=== PATIENT | male | born 1960 | race Caucasian/White ===

== ENCOUNTER 2016-05-13 13:44 | Observation (INO) | payer OTHER ==
[~2016-05-13] VITALS: Ht 188 cm; Wt 101.1 kg
--- NOTE | 2016-05-13 15:00 | DIAGNOSTIC IMAGING REPORT ---
PROCEDURE: XR CHEST 1 VIEW INDICATION: CHEST PAIN TECHNIQUE: Portable AP view 02:00 p.m. COMPARISON: None. FINDINGS: Lungs are clear. Heart and mediastinum are normal. Thorax is normal. IMPRESSION: 1. Negative chest.
--- NOTE | 2016-05-13 15:51 | ED NURSING NOTES ---
Clinical Report - Nurses [facility] [address] [place] [address] 05/13/2016 13:45 Patient: MACY HIGGINS TRIAGE Acuity: LEVEL 2. Chief Complaint: CHEST PAIN. Alert. --14:11 Genny Cantu R.N. 13:45 05/13/16. BP: 176/77. HR: 91. RR: 24. O2 saturation: 96% on room air. Temp: 97.7 F (oral). --14:11 Genny Cantu R.N. Weight: 103.4 kg measured. Height/Length: 74 inches Per Patient. BMI: 29.3. --13:57 Genny Cantu R.N. Medications MetFORMIN HCl Oral 1500 mg, daily. --14:08 Genny Cantu R.N. Rosuvastatin Calcium Oral 20 mg, daily. --14:08 Genny Cantu R.N. Losartan Potassium Oral 25 mg, at bedtime. --14:08 Genny Cantu R.N. Metoprolol Succinate ER Oral 50 mg, daily. --14:09 Genny Cantu R.N. Fenofibrate Micronized Oral 160 mg. --14:09 Genny Cantu R.N. Aspirin Oral (Tablet 81 mg) 1 tablet, daily. --14:09 Genny Cantu R.N. Avaodia 4 mg , 2x a day. --14:10 Genny Cantu R.N. Invokana Oral (Tablet 100 mg), daily. --14:11 Genny Cantu R.N. Medication/allergy information source: the patient. --14:11 Genny Cantu R.N. Allergies No Known Drug Allergy. --13:59 Genny Cantu R.N. History Arrived by EMS. Historian: EMS and patient. Unaccompanied. This started today. ( EMS reports pt developed chest pain approx 1.5 hours ago and drove self to walk-in clinic. EMS picked up pt there.). 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 SOCIAL HX: Smoker- current status unknown (chews tobacco). Regular alcohol use. Last drink was just prior to arrival. No drug use. FALL RISK ASSESSMENT: Fall risk assessment completed. No fall risk identified. NUTRITIONAL RISK ASSESSMENT: The nutritional risk assessment revealed no deficiencies. FUNCTIONAL ASSESSMENT: Functional assessment: no impairments noted. LEARNING NEEDS ASSESSMENT: The learning needs assessment revealed no barriers. SKIN INTEGRITY ASSESSMENT: Skin integrity risk assessment completed. No skin integrity risk identified. --14:11 Genny Cantu R.N. PROBLEMS: Diabetes Mellitus Type 2. Myocardial Infarction. PTSD. --14:02 Genny Cantu R.N. Hyperlipidemia. --17:18 Genny Cantu R.N. ADDITIONAL SURGERIES: Cardiac Catheterization. Knee Surgery. --14:02 Genny Cantu R.N. Assessment GENERAL / NEURO / PSYCH: Alert. Oriented X 4. Appears in no acute distress. RESPIRATORY: Respirations not labored. CVS: Capillary refill less than 2 seconds. GI / : Abdomen soft and nontender. SKIN: Mucous membranes are pink. Skin is warm and dry. --14:11 Genny Cantu R.N. Interventions ID band on patient. To treatment room. --14:11 Genny Cantu R.N. 13:45 05/13/2016 Site #1 started prior to arrival by EMS via IV in the right forearm with an 20g angiocath. --13:46 Genny Cantu R.N. PHYSICAL ASSESSMENT 14:13 05/13/16. GENERAL / NEURO / PSYCH: Alert. Appears in no acute distress. Appears in pain and anxious. He appears agitated and is hostile. The patient is disoriented. HEENT: Mucous membranes are pink. RESPIRATORY: Respirations not labored. CVS: Normal sinus rhythm noted. Pulses within normal limits. GI / : Abdomen soft and nontender. EXTREMITIES: No lower extremity edema. SKIN: Skin is warm and dry. Normal skin turgor. Skin is non-tender. --14:13 Genny Cantu R.N. NURSING PROGRESS NOTES 13:57 05/13/2016 Site #2 started via IV in the left antecubital space with an 18g angiocath, with aseptic technique and good blood return; one attempt. Blood drawn: rainbow set. Labeled in the presence of the patient and sent to the lab. Saline lock flushed with 10 mL saline. --14:02 Zaire Ocampo R.N. Oxygen administered by nasal cannula at 2 liters. Patient gowned. Head of bed elevated. Reassurance given. Patient identifiers checked. Call light placed in reach. Bed placed in lowest position. Brakes of bed on. ( ED MD at bedside upon arrival.). --14:12 Genny Cantu R.N. 13:42 05/13/2016 Nitroglycerin SL 0.4 mg given. Allergies verified and confirmed 5 rights. --14:14 Genny Cantu R.N. 13:47 05/13/16. ( attempted to start 2nd line on pt at 1347 and draw rainbow. Pt became agitated and tense. He balled up his fists and began shaking them at staff. Pt highly agitated and asking, "Why am I here?! Why are you doing this to me?" MD notified. Care delayed due to patient's agitation. IV placed at a later time after calming patient down.). --14:30 Zaire Ocampo R.N. 13:48 05/13/2016 Morphine IVP 4 mg given over 1 minute(s) via site #1. Allergies verified, confirmed 5 rights and sedative warning given to the patient. IV patency established. IV site checked: no pain, redness, or swelling. IV flushed thoroughly pre- and post-medication administration. IVP given by RN. --14:14 Genny Cantu R.N. 14:08 05/13/2016 Aspirin PO 325 mg given. Allergies verified and confirmed 5 rights. --14:13 Genny Cantu R.N. 14:47 05/13/2016 Started bag #1 500 mL IV Fluids IV NS (Saline); at 125 mL/hr over 4 hour(s) via site #1 via IV pump. Allergies verified and confirmed 5 rights. IV patency established. IV site checked: no pain, redness, or swelling. IV flushed thoroughly pre- and post-medication administration. Completed per protocol. --14:47 Rivera Barton R.N. EKG time: (13:56). EKG was performed by a tech and shown to the ED physician. --14:53 Davida Baker 15:03 05/13/16. BP: 143/66. HR: 75. RR: 16. O2 saturation: 95% on room air. --15:06 Zaire Ocampo R.N. ( at bedside). --15:06 Zaire Ocampo R.N. ( Again requested patient to provide urine sample). --16:25 Zaire Ocampo R.N. 16:45 05/13/16. BP: 134/76. HR: 64. RR: 18. O2 saturation: 99%. Pain level now: 06/24. --16:48 Genny Cantu R.N. 18:00 05/13/2016 IV Fluids IV NS Discontinued: bag #1 infused upon admission. Total amount infused: 1000 mL. IV patency established. IV site checked: no pain, redness, or swelling. IV flushed thoroughly. --18:39 Genny Cantu R.N. DISPOSITION / DISCHARGE 17:27 05/13/16. BP: 126/76. HR: 66. RR: 18. O2 saturation: 99% on nasal cannula at 2 liters/minute. --17:28 Genny Cantu R.N. Departure time: 17:59 May 13 2016. Condition at departure: improved and stable. Disposition: observation. Transported via wheelchair by nurse. Report was given to a nurse via a phone call. Report included patient's care, treatment, medications, reviewed medication reconcilliation, and condition (including any recent changes or anticipated changes). Report was acknowledged and care was transferred. (TJ Ngo). Bed obtained (303). Patient's personal items include, pt's possessions given to to take home. --18:00 Genny Cantu R.N. 18:00 05/13/2016 Site #[address] upon admission; patent, no pain and no signs of infection or infiltration. Converted to saline lock; flushes easily. --18:37 Genny Cantu R.N. 18:00 05/13/2016 Site #[address] upon admission; patent, no pain and no signs of infection or infiltration. Flushed with 10 mL saline; flushes easily. --18:37 Genny Cantu R.N. Locked/Released at 05/14/2016 8:52 by Millie Rodriguez R.N.
--- NOTE | 2016-05-13 15:51 | ED ORDER SUMMARY ---
..... Patient: MACY HIGGINS OrderSheet [facility] VisitID: [id number] [address] [place] [address] 56y, M Registration Date/Time: 05/13/2016 ORDER SHEET Weight: 103.4 kg (measured) Allergies: No Known Drug Allergy GENERAL ORDERS: Chest 1V Urgent (13:47 05/13/2016 Shyanne SHAVER) (14:01 Danna R.N.) Model Maker (Continuous) (13:47 05/13/2016 Shyanne SHAVER) (14:01 Danna R.N.) CBC w Diff Urgent (13:47 05/13/2016 Shyanne SHAVER) (14:01 Danna R.N.) CMP Urgent (13:47 05/13/2016 Shyanne SHAVER) (14:01 Danna R.N.) UA-Culture if indicated Urgent (13:47 05/13/2016 Shyanne SHAVER) (Ack 14:10 RKaruga) PT with INR Urgent (13:47 05/13/2016 Shyanne SHAVER) (14:01 Danna R.N.) PTT Urgent (13:47 05/13/2016 Shyanne SHAVER) (14:01 Danna R.N.) D-Dimer Urgent (13:47 05/13/2016 Shyanne SHAVER) (14:01 Danna R.N.) Amylase Urgent (13:47 05/13/2016 Shyanne SHAVER) (14:01 Danna R.N.) Lipase Urgent (13:47 05/13/2016 Shyanne SHAVER) (14:01 Danna R.N.) BNP Urgent (13:47 05/13/2016 Shyanne SHAVER) (14:01 Danna R.N.) CPK Urgent (13:47 05/13/2016 Shyanne SHAVER) (14:01 Danna R.N.) Troponin-I Urgent (13:47 05/13/2016 Shyanne SHAVER) (14:01 Danna R.N.) Oxygen (2 L/min) (NC) (13:47 05/13/2016 Shyanne SHAVER) (14:06 Karyn R.N.) Pulse oximeter (13:47 05/13/2016 Shyanne SHAVER) (14:01 Danna R.N.) EKG - ER Stat (13:47 05/13/2016 Shyanne SHAVER) (14:00 Enrico) Ethyl Alcohol Urgent (13:50 05/13/2016 Shyanne SHAVER) (14:01 Danna R.N.) Urine Drug Screen Urgent (13:50 05/13/2016 Shyanne SHAVER) (Ack 14:[facility] MEDICATION ORDERS: Aspirin PO 325 mg (NOW) (13:47 05/13/2016 Shyanne SHAVER) (14:13 DIDIERinterguille R.N.) NitroGLYCERIN SL 0.4 mg (x3 PRN Chest Pain) (13:47 05/13/2016 Shyanne SHAVER) (14:14 DIDIERinterguille R.N.) IV FLUIDS: IV Saline Lock (13:47 05/13/2016 Shyanne SHAVER) (14:02 Danna R.N.) Morphine IV 4 mg (HIGH ALERT MEDICATION, NOW) (13:54 05/13/2016 Shyanne SHAVER) (14:14 DIDIERinterguille R.N.) IV NS : initial bolus 500 mL (1000 mL/hr), then 125 mL/hr for 4h (NOW); Urgent (14:38 05/13/2016 Shyanne SHAVER) (14:47 Regino R.N.) ORDER SHEET NOTES: [Electronically signed by Dean Munoz MD (20:30 05/13/2016)] [Electronically signed by Millie Rodriguez R.N. (08:52 05/14/2016)] [Electronically locked/signed by Millie Rodriguez R.N. (08:52 05/14/2016)]
--- NOTE | 2016-05-13 15:51 | ED ORDER SUMMARY ---
..... Patient: MACY HIGGINS OrderSheet [facility] VisitID: [id number] [address] [place] [address] 56y, M Registration Date/Time: 05/13/2016 ORDER SHEET Weight: 103.4 kg (measured) Allergies: No Known Drug Allergy GENERAL ORDERS: Chest 1V Urgent (13:47 05/13/2016 Shyanne SHAVER) (14:01 Danna R.N.) Physical Therapy Resident (Continuous) (13:47 05/13/2016 Shyanne SHAVER) (14:01 Danna R.N.) CBC w Diff Urgent (13:47 05/13/2016 Shyanne SHAVER) (14:01 Danna R.N.) CMP Urgent (13:47 05/13/2016 Shyanne SHAVER) (14:01 Danna R.N.) UA-Culture if indicated Urgent (13:47 05/13/2016 Shyanne SHAVER) (Ack 14:10 RKaruga) PT with INR Urgent (13:47 05/13/2016 Shyanne SHAVER) (14:01 Danna R.N.) PTT Urgent (13:47 05/13/2016 Shyanne SHAVER) (14:01 Danna R.N.) D-Dimer Urgent (13:47 05/13/2016 Shyanne SHAVER) (14:01 Danna R.N.) Amylase Urgent (13:47 05/13/2016 Shyanne SHAVER) (14:01 Danna R.N.) Lipase Urgent (13:47 05/13/2016 Shyanne SHAVER) (14:01 Danna R.N.) BNP Urgent (13:47 05/13/2016 Shyanne SHAVER) (14:01 Danna R.N.) CPK Urgent (13:47 05/13/2016 Shyanne SHAVER) (14:01 Danna R.N.) Troponin-I Urgent (13:47 05/13/2016 Shyanne SHAVER) (14:01 Danna R.N.) Oxygen (2 L/min) (NC) (13:47 05/13/2016 Shyanne SHAVER) (14:06 Karyn R.N.) Pulse oximeter (13:47 05/13/2016 Shyanne SHAVER) (14:01 Danna R.N.) EKG - ER Stat (13:47 05/13/2016 Shyanne SHAVER) (14:00 Enrico) Ethyl Alcohol Urgent (13:50 05/13/2016 Shyanne SHAVER) (14:01 Danna R.N.) Urine Drug Screen Urgent (13:50 05/13/2016 Shyanne SHAVER) (Ack 14:10 [facility] MEDICATION ORDERS: Aspirin PO 325 mg (NOW) (13:47 05/13/2016 Shyanne SHAVER) (14:13 DIDIERinterguille R.N.) NitroGLYCERIN SL 0.4 mg (x3 PRN Chest Pain) (13:47 05/13/2016 Shyanne SHAVER) (14:14 DIDIERinterguille R.N.) IV FLUIDS: IV Saline Lock (13:47 05/13/2016 Shyanne SHAVER) (14:02 Danna R.N.) Morphine IV 4 mg (HIGH ALERT MEDICATION, NOW) (13:54 05/13/2016 Shyanne SHAVER) (14:14 DIDIERinterguille R.N.) IV NS : initial bolus 500 mL (1000 mL/hr), then 125 mL/hr for 4h (NOW); Urgent (14:38 05/13/2016 Shyanne SHAVER) (14:47 Regino R.N.) ORDER SHEET NOTES: [Electronically signed by Dean Munoz MD (20:30 05/13/2016)] [Electronically signed by Millie Rodriguez R.N. (08:52 05/14/2016)] [Electronically locked/signed by Millie Rodriguez R.N. (08:52 05/14/2016)]
--- NOTE | 2016-05-13 15:51 | ED CLINICAL REPORT ---
Clinical Report - Physicians/Mid Levels [facility] [address] [place] [address] 05/13/2016 13:45 Patient: MACY HIGGINS Time Seen: 13:44. Arrived- By ambulance. Historian- patient and EMS personnel. History limited by vague historian. HISTORY OF PRESENT ILLNESS Chief Complaint: CHEST PAIN. At its maximum, severity described as severe. When seen in the E.D., severity described as severe. Modifying factors- worsened by food. Not relieved by anything. It is described as pressure, "pain" and well localized and it is described as located in the central chest area. No radiation. This started today about 1 hour ago and is still present. It was abrupt in onset and has been constant. Onset during light activity. No nausea, vomiting or diaphoresis. He has had difficulty breathing. Similar symptoms previously: Once. Diagnosis: coronary disease and AR. REVIEW OF SYSTEMS No chills, fever, sweats, cough or pedal edema. No abdominal pain, constipation, diarrhea, nausea or vomiting. No urinary problems. He has had calf pain involving the right leg and left leg ("cramps at night"). All systems otherwise negative, except as recorded above. PAST HISTORY PCP - JEAN CLAUDE ISSA Problems: Diabetes Mellitus Type 2. Myocardial Infarction. PTSD. Additional Surgeries: Cardiac Catheterization. Knee Surgery. Medications: Invokana Oral (Tablet 100 mg), daily. Avaodia 4 mg , 2x a day. Aspirin Oral (Tablet 81 mg) 1 tablet, daily. Fenofibrate Micronized Oral 160 mg. Metoprolol Succinate ER Oral 50 mg, daily. Losartan Potassium Oral 25 mg, at bedtime. Rosuvastatin Calcium Oral 20 mg, daily. MetFORMIN HCl Oral 1500 mg, daily. Allergies: No Known Drug Allergy. SOCIAL HISTORY Smoker- current status unknown (he chews tobacco). Occasional alcohol use; consumes liquor drinks. Last drink was just prior to arrival. Under the influence in E.D. No drug use. FAMILY HISTORY Diabetes in grandparent; heart disease in first-degree relative (father and sibling). ADDITIONAL NOTES The nursing notes have been reviewed. PHYSICAL EXAM Vital Signs: 05/13/2016 13:45 BP: 176/77. HR: 91. RR: 24. O2 saturation: 96%. Temp: 97.7 F. Have been reviewed. Appearance: Alert. Appears to be in pain. Eyes: Pupils equal, round and reactive to light. ENT: Pharynx normal. Neck: Normal inspection. Neck supple. No JVD. CVS: Normal heart rate and rhythm. Heart sounds normal. Respiratory: No respiratory distress. Breath sounds normal. Abdomen: Soft and nontender. No organomegaly. No mass. Back: Normal external inspection. Skin: Skin warm and dry. Normal skin color. Normal skin turgor. Extremities: Extremities exhibit normal ROM. No calf tenderness. No lower extremity edema. LABS, X-RAYS, AND EKG EKG: Rate: 88. Nondiagnostic Q waves in lead II, III and aVF. cannot rule out anterior infarct age undetermined. Changes present when compared to prior EKG. (The study performed in the ambulance had baseline artifact but was otherwise unremarkable). The study has been independently viewed by me. Chest X-ray: No acute disease. The X-rays were independently viewed by me. Laboratory Tests: CBC w Diff: (MORIAH: 05/13/2016 14:00) ( MsgRcvd 05/13/2016 14:08) Final results Test Result Flag Units (Reference) WHITE BLOOD COUNT 5.6 K/uL (4.5-11.5) RED BLOOD COUNT 4.99 M/uL (4.50-5.90) HEMOGLOBIN 14.3 gm/dL (13.5-17.5) HEMATOCRIT 42.2 % (41.0-53.0) MEAN CELL VOLUME 85 fL (80-100) MEAN CORPUSCULAR HGB 29 pg (26-34) MEAN CORPUSCULAR HGB CONC 34 g/dL (31-37) RED CELL DISTRIBUTION WIDTH 14.4 % (11.6-14.8) PLATELET COUNT 306 K/uL (150-400) NEUTROPHIL % 62.8 % (50-75) LYMPH % 28.3 % (25-40) MONO % 7.4 % (3-14) EOSINOPHIL % 1.2 % (0-4) BASOPHIL % 0.3 % (0-2) PT with INR: (MORIAH: 05/13/2016 14:00) ( [facility] 05/13/2016 14:34) Final results Test Result Flag Units (Reference) INR 0.9 (0.8-1.2) Low Intensity Therapy: INR 1.5-2.0 PT range 18.5-23.1Mod.Intensity Therapy: INR 2.0-3.0 PT range 23.1-31.5High Intensity Therapy: INR 2.5-3.5 PT range 27.4-35.5High Intensity Therapy 2: INR 3.0-4.0 PT range 31.5-39.3 APTT 29 SECONDS (24-34) D-DIMER QUANTITATIVE < 0.27 L ug/mLFEU (0.27-0.52) The primary value of this quantitative assay relates toits negative predictive value (i.e. exclusion) of pulmonaryembolism/deep vein thrombosis/DIC.Elevated levels of d-dimer may also occur with:, age, cancer, inflammation, liver disease,post-op, infection, hematoma, coronary disease, peripheralarteriopathy, bleeding disorders and thrombolytic treatment.Results should be correlated with other clinical andradiological data.Testing Methodology: Latex Immunoassay Ethyl Alcohol: (MORIAH: 05/13/2016 14:00) ( [facility] 05/13/2016 14:30) Final results Test Result Flag Units (Reference) ETHYL ALCOHOL 16 H mg/dL (3-10) BNP: (MORIAH: 05/13/2016 14:00) ( [facility] 05/13/2016 14:33) Final results Test Result Flag Units (Reference) B-TYPE NATRIURETIC PEPTIDE 9.5 pg/ml (5-100) CMP: (MORIAH: 05/13/2016 14:00) ( [facility] 05/13/2016 14:42) Final results Test Result Flag Units (Reference) GLUCOSE 255 H mg/dL (70-110) BUN 26 H mg/dL (7-18) CREATININE 1.5 H mg/dL (0.6-1.3) Estimated GFR 51.09 mL/min Estimated GFR- >60 mL/min Note: Persistent reduction over 3 months in eGFR<60 mL/min/1.73 m2 defines CKD. Patients with eGFR values>=60 mL/min/1.73 m2 may also have CKD if evidence ofpersistent proteinuria. Additional information may be foundat www.kidney.org. SODIUM 138 mmol/L (136-145) POTASSIUM 4.1 mmol/L (3.5-5.1) CHLORIDE 103 mmol/L (98-107) CARBON DIOXIDE 21 mmol/L (21-32) CALCIUM 8.5 mg/dL (8.5-10.1) TOTAL PROTEIN 7.3 g/dL (6.4-8.2) ALBUMIN 3.7 g/dL (3.3-5.0) BILIRUBIN, TOTAL 0.4 mg/dL (0.0-1.0) ALKALINE PHOSPHATASE 46 U/L (46-116) AST (SGOT) 20 U/L (15-37) ALT (SGPT) 29 U/L (12-78) LIPASE 146 U/L (73-393) AMYLASE 82 U/L (25-115) CPK 83 U/L (24-260) TROPONIN I <0.05 L ng/mL (0.00-1.5) TROPONIN REFERENCE RANGE:<0.1 NEGATIVE0.1-1.5 INDETERMINANT>1.5 POSITIVE . PROGRESS AND PROCEDURES Discussed case with hospitalist, (Jaguar). Reviewed test results and need for additional work-up. Agreed upon treatment plan, need for patient follow-up and decision to place in observation. Patient/family counseled. Old medical records ordered. Old records unavailable. Disposition: Admitted. Observation. CLINICAL IMPRESSION Chest pain. (Electronically signed by Dean Munoz MD 05/13/2016 20:30)
--- NOTE | 2016-05-13 16:39 | History & Physical Report ---
Admission Admit Date 05/13/16 Information Source Information Source: Self, Spouse/Partner, ED Record History Chief Complaint Chest pain History of Present Illness 56yoM w/ hx of PA s/p stents 3 years ago, NIDDM, HLD, who presents from urgent care due to chest pain since this morning. Patient states that the pain initially felt like heartburn. He ate lunch thinking that would help, but then the pain got worse and felt like he had been "kicked by a horse." He decided to go to the urgent care when both hands started to feel numb. He denies any pain radiation, SOB, diaphoresis, nausea/vomiting. Pain is not worse with deep inspiration, but he states that when he turns in certain positions the pain is even worse. In the urgent care, it started to feel more like a squeezing sensation, and EMS reportedly found him in severe pain on the ground. He does not recall the ambulance ride. He was given aspirin and nitro, though he does not feel that the nitro helped (just gave him headache). He still has the pain, but it was much better after getting some morphine. His notes that he had c/o epigastric pain about a week ago, but that has since resolved. He denies any falls or trauma, but was helping push a neighbors car yesterday. He has not seen his medical program specialist recently, and has not had a stress test since his cardiac cath. Patient History 1. CAD (coronary artery disease) 2. Diabetes 3. Hyperlipidemia 4. Stented coronary artery Social History Chews tobacco, occasional etoh, no drug use. Medications and Allergies Medications Current Medications Sig/Shahnaz Start time Last Medication Dose Route Stop Time Status Admin Aspirin 81 MG DAILY 05/14 899 UNV PO Enoxaparin Sodium 40 MG QAM 05/14 0900 UNV SC Lisinopril 10 MG DAILY 05/14 0900 UNV PO Metoprolol Succinate 50 MG DAILY 05/14 0900 UNV PO Atorvastatin Calcium 40 MG QPM 05/13 1800 UNV PO Acetaminophen 650 MG Q6H PRN 05/13 1630 UNV PO Al Hydrox/Mg Hydrox/ 15 ML Q1H PRN 05/13 1630 UNV Simethicone PO Insulin Human Lispro See Dose ACHS 05/13 1630 UNi Insts (1) SC Magnesium Hydroxide 10 ML DAILY PRN 05/13 1630 UNV PO Morphine Sulfate 1 MG Q30MIN PRN 05/13 1630 UNV IV Morphine Sulfate 2 MG Q3M PRN 05/13 1630 UNV IV Nitroglycerin 0.4 MG Q5M PRN 05/13 1630 UNV SL Ondansetron HCl 4 MG Q6H PRN 05/13 1630 UNV IV Pantoprazole Sodium 40 MG DAILY@0600 05/13 1630 UNVr Sesquihydrate PO Lidocaine 15 ML NOW STA 05/13 162 UNV Al Hydrox/Mg Hydrox/ 15 ML PO 05/13 1626 Simethicone Dose Instructions: (1)Insulin Human Lispro: LOW DOSE SLIDING SCALE Allergies Coded Allergies: NKA (05/13/16) Review of Systems Other As per HPI, rest of 10-point ROS unremarkable. Physical Exam General Appearance Alert, Oriented X3, Cooperative, No acute distress HEENT Atraumatic, Moist mucous membranes Lungs Clear to auscultation Neck Supple, No JVD Cardiovascular Regular rate and rhythm, Normal S1 and S2, No murmurs, gallops, rubs Abdomen Normal bowel sounds, Soft, No tenderness Extremities No cyanosis, No clubbing, No edema, Tender over sternum and R chest wall. +pain in pectoris muscle and shoulder w/ inverted can test. Skin No Rashes Neurological Normal speech, Sensation intact, Cranial nerves intact, Strength 5/ 5 x4 ext's, No lateralizing signs Psych/Mental Status Mental status normal, Mood normal LAB Results Laboratory Tests 05/13 05/13 1400 1400 Chemistry Plasma Sodium (136 - 145 mmol/L) 138 Plasma Potassium (3.5 - 5.1 mmol/L) 4.1 Plasma Chloride (98 - 107 mmol/L) 103 CO2 (Enzymatic) (21 - 32 mmol/L) 21 BUN (7 - 18 mg/dL) 26 Creatinine (0.6 - 1.3 mg/dL) 1.5 Est GFR ( Amer) (mL/min) >60 Est GFR (Non-Af Amer) (mL/min) 51.09 Glucose (70 - 110 mg/dL) 255 Plasma Calcium (8.5 - 10.1 mg/dL) 8.5 Total Bilirubin (0.0 - 1.0 mg/dL) 0.4 AST (15 - 37 U/L) 20 ALT (12 - 78 U/L) 29 Alkaline Phosphatase (46 - 116 U/L) 46 Creatine Kinase (24 - 260 U/L) 83 Troponin (0.00 - 1.5 ng/mL) <0.05 B-Natriuretic Peptide (5 - 100 pg/ml) 9.5 Total Protein (6.4 - 8.2 g/dL) 7.3 Albumin (3.3 - 5.0 g/dL) 3.7 Amylase (25 - 115 U/L) 82 Lipase (73 - 393 U/L) 146 Coagulation INR (0.8 - 1.2) 0.9 APTT (24 - 34 SECONDS) 29 D-Dimer, Quantitative (0.27 - 0.52 ug/mLFEU) < 0.27 Hematology WBC (4.5 - 11.5 K/uL) 5.6 RBC (4.50 - 5.90 M/uL) 4.99 Hgb (13.5 - 17.5 gm/dL) 14.3 Hct (41.0 - 53.0 %) 42.2 MCV (80 - 100 fL) 85 MCH (26 - 34 pg) 29 RDW (11.6 - 14.8 %) 14.4 Neut % (Auto) (50 - 75 %) 62.8 Lymph % (Auto) (25 - 40 %) 28.3 Rains % (Auto) (3 - 14 %) 7.4 Eos % (Auto) (0 - 4 %) 1.2 Baso % (Auto) (0 - 2 %) 0.3 Plt Count, EDTA (150 - 400 K/uL) 306 PUBS MCHC (31 - 37 g/dL) 34 Toxicology Plasma/Serum Ethyl Alc (3 - 10 mg/dL) 16 Assessment and Plan Problem List 1. Chest pain Plan Due to his history, will rule out for ACS. Trop and EKG unremarkable, but will monitor on tele and cycle troponins. Repeat EKG in AM. Will continue on his cardiac meds, including asprin, metoprolol, losartan, and statin. His pain may also be GI related, and will place on PPI and trial GI cocktail. Interestingly, his exam also suggests that it may be MSK, but will need to r/o the above first. 2. CAD (coronary artery disease) Plan Continue aspirin, statin, metoprolol, and losartan. 3. Diabetes Plan Holding PO meds while hospitalized. SSI for now. A1c ordered for am. 4. Hyperlipidemia Plan Continue fenofibrate and statin. Lipid panel for AM. FEN: cardiac/DM PPx: lovenox Code: FULL Dispo: Obs for above, as will likely require <2MN hospital stay. E&M Codes Rounding: Obsv-Comp/High/[id number]
[2016-05-13 18:11] VITALS: BP 142/71
[2016-05-13] MEDS ORDERED: ASPIRIN81 M1 PO (19:43)
[2016-05-13] MEDS ORDERED: LOFIBRA160 MG PO (19:43)
[2016-05-13] MEDS ORDERED: LOSARTAN POTASS25 MG PO (19:45)
[2016-05-13] MEDS ORDERED: INVOKANA100 MG PO (19:45)
[2016-05-13] MEDS ORDERED: GLUCOPHAGE850 MG PO (19:46)
[2016-05-13] MEDS ORDERED: CRESTOR20 MG PO (19:46)
[2016-05-13] MEDS ORDERED: METOPROLOL SUCC25 MG PO (19:46)
[2016-05-13] MEDS ORDERED: ADDERALL20 MG PO (19:47)
[2016-05-13] MEDS ORDERED: LEVOTHYROXINE25 MCG PO (19:48)
[2016-05-13] MEDS ORDERED: GLIPIZIDE5 MG PO (19:50)
[2016-05-13 23:01] VITALS: BP 122/68
[2016-05-14 02:13] VITALS: BP 112/67
[2016-05-14 06:46] VITALS: BP 115/61
--- NOTE | 2016-05-14 08:53 | ED MED RECONCILIATION SUMMARY ---
Patient: MACY HIGGINS Medication Reconciliation Report [facility] VisitID: [id number] [address] [place] [address] 56y, M Registration Date/Time: 05/13/2016 Weight: 103.4 kg Height/Length: 74 in. BMI: 29.3 ALLERGIES: No Known Drug Allergy The patient's Home Medications are listed below: THE FOLLOWING MEDICATIONS NEED TO BE RECONCILED: Aspirin Oral (81 mg) 1 tablet, daily Avaodia 4 mg , 2x a day Fenofibrate Micronized Oral 160 mg Invokana Oral (100 mg), daily Losartan Potassium Oral 25 mg, at bedtime MetFORMIN HCl Oral 1500 mg, daily Metoprolol Succinate ER Oral 50 mg, daily Rosuvastatin Calcium Oral 20 mg, daily The source(s) of the original Home Medication information: patient The following Medications were given to the patient in the Emergency Department: Aspirin [PO] PO 325 mg, administered: 05/13/2016 2:08:00 PM Morphine [IVP] IVP 4 mg, administered: 05/13/2016 1:48:00 PM Nitroglycerin [SL] SL 0.4 mg, administered: 05/13/2016 1:42:00 PM IV NS IV Fluids bolus 0, then 125 mL/hr, administered: 05/13/2016 2:47:00 PM The following Medications were prescribed to the patient: None.
--- NOTE | 2016-05-14 08:53 | ED MAR SUMMARY ---
..... Medication Administration Record [facility] [address] [place] [place] [address] Patient: MACY HIGGINS Visit ID: [id number] 56y, M Weight: 103.4 kg Height/Length: 74 in BMI: 29.3 ALLERGIES: No Known Drug Allergy Given 13:42 05/13/2016 Genny Cantu R.N. Medication Administered: NITROGLYCERIN [SL], Dose: 0.4 mg SL. Medication Ordered: NitroGLYCERIN SL 0.4 mg (x3 PRN Chest Pain). Given 13:48 05/13/2016 Genny Cantu R.N. Medication Administered: MORPHINE [IVP], Dose: 4 mg IVP over 1 minute(s), Site: #1 right forearm. Medication Ordered: Morphine IV 4 mg (HIGH ALERT MEDICATION, NOW). Given 14:08 05/13/2016 Genny Cantu R.N. Medication Administered: ASPIRIN [PO], Dose: 325 mg PO. Medication Ordered: Aspirin PO 325 mg (NOW). Start 14:47 05/13/2016 Rivera Barton RFelipe, Stop 18:00 05/13/2016 Genny Cantu R.N. Medication Administered: IV NS (SALINE), Dose: IV Fluids over 4 hour(s), Rate: 125 mL/hr, Dispensed: 500 mL bag, Site: #1 right forearm. Medication Ordered: IV NS : initial bolus 500 mL (1000 mL/hr), then 125 mL/hr for 4h (NOW); Urgent.
--- NOTE | 2016-05-14 08:53 | ED MED RECONCILIATION SUMMARY ---
Patient: MACY HIGGINS Medication Reconciliation Report [facility] VisitID: [id number] [address] [place] [address] 56y, M Registration Date/Time: 05/13/2016 Weight: 103.4 kg Height/Length: 74 in. BMI: 29.3 ALLERGIES: No Known Drug Allergy The patient's Home Medications are listed below: THE FOLLOWING MEDICATIONS NEED TO BE RECONCILED: Aspirin Oral (81 mg) 1 tablet, daily Avaodia 4 mg , 2x a day Fenofibrate Micronized Oral 160 mg Invokana Oral (100 mg), daily Losartan Potassium Oral 25 mg, at bedtime MetFORMIN HCl Oral 1500 mg, daily Metoprolol Succinate ER Oral 50 mg, daily Rosuvastatin Calcium Oral 20 mg, daily The source(s) of the original Home Medication information: patient The following Medications were given to the patient in the Emergency Department: Aspirin [PO] PO 325 mg, administered: 05/13/2016 2:08:00 PM Morphine [IVP] IVP 4 mg, administered: 05/13/2016 1:48:00 PM Nitroglycerin [SL] SL 0.4 mg, administered: 05/13/2016 1:42:00 PM IV NS IV Fluids bolus 0, then 125 mL/hr, administered: 05/13/2016 2:47:00 PM The following Medications were prescribed to the patient: None.
--- NOTE | 2016-05-14 08:53 | ED MAR SUMMARY ---
..... Medication Administration Record [facility] [address] [place] [address] Patient: MACY HIGGINS Visit ID: [id number] 56y, M Weight: 103.4 kg Height/Length: 74 in BMI: 29.3 ALLERGIES: No Known Drug Allergy Given 13:42 05/13/2016 Genny Cantu R.N. Medication Administered: NITROGLYCERIN [SL], Dose: 0.4 mg SL. Medication Ordered: NitroGLYCERIN SL 0.4 mg (x3 PRN Chest Pain). Given 13:48 05/13/2016 Genny Cantu R.N. Medication Administered: MORPHINE [IVP], Dose: 4 mg IVP over 1 minute(s), Site: #1 right forearm. Medication Ordered: Morphine IV 4 mg (HIGH ALERT MEDICATION, NOW). Given 14:08 05/13/2016 Genny Cantu R.N. Medication Administered: ASPIRIN [PO], Dose: 325 mg PO. Medication Ordered: Aspirin PO 325 mg (NOW). Start 14:47 05/13/2016 Rivera Barton RFelipe, Stop 18:00 05/13/2016 Genny Cantu R.N. Medication Administered: IV NS (SALINE), Dose: IV Fluids over 4 hour(s), Rate: 125 mL/hr, Dispensed: 500 mL bag, Site: #1 right forearm. Medication Ordered: IV NS : initial bolus 500 mL (1000 mL/hr), then 125 mL/hr for 4h (NOW); Urgent.
--- NOTE | 2016-05-14 08:53 | ED DISCHARGE INSTRUCTIONS ---
Patient: MACY HIGGINS General Instructions [facility] VisitID: [id number] [address] [place] [address] 56y, M Registration Date/Time: 05/13/2016 Chest pain. (Electronically signed by Dean Munoz MD 05/13/2016 20:30)
--- NOTE | 2016-05-14 08:53 | ED DISCHARGE INSTRUCTIONS ---
Patient: MACY HIGGINS General Instructions [facility] VisitID: [id number] [address] [place] [address] 56y, M Registration Date/Time: 05/13/2016 Chest pain. (Electronically signed by Dean Munoz MD 05/13/2016 20:30)
--- NOTE | 2016-05-14 08:58 | Progress Note ---
Subjective General Note Date: May 14, 2016 Admission Date: May 13, 2016 Hospital Day: 2 PCP: Solo Sinha M.D. Status: Observation Advanced Directive: FULL CODE Room: 303 Subjective: The patient states he is doing well today. Persistent chest pain associated with chest wall movement or palpation Patient requests: None. Patient wishes discharge Medications and Allergies Medications Current Medications Sig/Shahnaz Start time Last Medication Dose Route Stop Time Status Admin Aspirin 81 MG DAILY 05/14 0900 AC PO Enoxaparin Sodium 40 MG QAM 05/14 0900 AC SC Lisinopril 10 MG DAILY 05/14 0900 AC PO Metoprolol Succinate 50 MG DAILY 05/14 0900 AC PO Atorvastatin Calcium 40 MG QPM 05/13 1800 AC 05/13 PO 2031 Pantoprazole Sodium 40 MG DAILY@0600 05/13 1800 AC 05/13 Sesquihydrate PO 2027 Acetaminophen 650 MG Q6H PRN 05/13 1630 AC PO Al Hydrox/Mg Hydrox/ 15 ML Q1H PRN 05/13 1630 AC 05/13 Simethicone PO 203 Insulin Human Lispro See Dose ACHS 05/13 1630 AC Insts (1) SC Magnesium Hydroxide 10 ML DAILY PRN 05/13 1630 AC PO Morphine Sulfate 1 MG Q30MIN PRN 05/13 1630 AC 05/13 IV 2234 Morphine Sulfate 2 MG Q3M PRN 05/13 1630 AC IV Nitroglycerin 0.4 MG Q5M PRN 05/13 1630 AC SL Ondansetron HCl 4 MG Q6H PRN 05/13 1630 AC IV Dose Instructions: (1)Insulin Human Lispro: LOW DOSE SLIDING SCALE Allergies Coded Allergies: NKA (05/13/16) Physical Exam Vital Signs / I&Os Vital Signs Date Time Temp Pulse Resp B/P Pulse O2 O2 Flow FiO2 Ox Delivery Rate 05/14 0646 98.2 60 19 115/61 97 Room Air 0.0 05/14 0213 97.5 63 22 112/67 97 Room Air 05/13 2301 98.1 60 24 122/68 97 Room Air 05/13 2043 Room Air 05/13 1816 2.0 05/13 1810 97.5 64 24 142/71 95 Room Air I&O 05/14 0000 05/13 1600 05/13 0800 Intake Total 480 Output Total 700 Balance -220 General Appearance Alert, Oriented X3, Cooperative, No acute distress Lungs Clear to auscultation Cardiovascular Regular rate and rhythm, Normal S1 and S2 Abdomen Normal bowel sounds, Soft, No tenderness Neurological Grossly normal Psych/Mental Status Mental status normal, Mood normal LAB Results Laboratory Tests 05/14 05/14 05/14 05/13 0413 0413 0413 1955 Chemistry Plasma Sodium (136 - 145 mmol/L) 141 Plasma Potassium (3.5 - 5.1 mmol/L) 4.4 Plasma Chloride (98 - 107 mmol/L) 105 CO2 (Enzymatic) (21 - 32 mmol/L) 26 BUN (7 - 18 mg/dL) 24 Creatinine (0.6 - 1.3 mg/dL) 1.3 Est GFR ( Amer) (mL/min) >60 Est GFR (Non-Af Amer) (mL/min) >60 Glucose (70 - 110 mg/dL) 139 Hemoglobin A1c % (4.5 - 6.2 %) 8.2 Plasma Calcium (8.5 - 10.1 mg/dL) 8.6 Troponin (0.00 - 1.5 ng/mL) <0.05 <0.05 Triglycerides (30 - 200 mg/dL) 245 Cholesterol (140 - 200 mg/dL) 187 LDL Cholesterol, Calc (mg/dL) 100 HDL Cholesterol (32 - 96 mg/dL) 38 LDL/HDL Ratio 2.6 Cholesterol/HDL Ratio 4.9 Coronary Risk Interp (0.4 - 1.0) 0.8 Hematology WBC (4.5 - 11.5 K/uL) 5.6 RBC (4.50 - 5.90 M/uL) 4.85 Hgb (13.5 - 17.5 gm/dL) 13.7 Hct (41.0 - 53.0 %) 41.2 MCV (80 - 100 fL) 85 MCH (26 - 34 pg) 28 RDW (11.6 - 14.8 %) 14.8 Neut % (Auto) (50 - 75 %) 51.4 Lymph % (Auto) (25 - 40 %) 33.2 [place] % (Auto) (3 - 14 %) 12.2 Eos % (Auto) (0 - 4 %) 2.7 Baso % (Auto) (0 - 2 %) 0.5 Plt Count, EDTA (150 - 400 K/uL) 269 PUBS MCHC (31 - 37 g/dL) 33 05/13 05/13 1850 1400 Chemistry B-Natriuretic Peptide (5 - 100 pg/ml) 9.5 Toxicology Urine Opiates Screen (NEGATIVE) POSITIVE Urine Methadone Screen (NEGATIVE) NEGATIVE Ur Barbiturates Screen (NEGATIVE) NEGATIVE U Amphetamin/Meth Scrn (NEGATIVE) POSITIVE MDMA (Ecstasy) Screen (NEGATIVE) NEGATIVE U Benzodiazepines Scrn (NEGATIVE) NEGATIVE Urine Cocaine Screen (NEGATIVE) NEGATIVE U Cannabinoids Screen (NEGATIVE) NEGATIVE Urines Urine Color YELLOW Urine Appearance CLEAR Urine pH (5.0 - 8.0) 5.5 Ur Specific [place] (1.010 - 1.030) 1.025 Urine Protein (NEGATIVE) NEGATIVE Urine Ketones (NEGATIVE) TRACE Urine Blood (NEGATIVE) NEGATIVE Urine Nitrite (NEGATIVE) NEGATIVE Urine Bilirubin (NEGATIVE) NEGATIVE Urine Urobilinogen (0.2 - 1.0 EU/dL) 0.2 Ur Leukocyte Esterase (NEGATIVE) NEGATIVE Urine RBC (0 - 1 rbc/hpf) 0-1 Urine WBC (0 - 1 wbc/hpf) 1-3 Ur Epithelial Cells (0 - 5 EPI/hpf) 1-3 Urine Bacteria (NONE SEEN) TRACE (<1+) Urine Glucose (NEGATIVE) 1+ Urine Comment CULT NOT INDICATED 05/13 1400 Chemistry Plasma Sodium (136 - 145 mmol/L) 138 Plasma Potassium (3.5 - 5.1 mmol/L) 4.1 Plasma Chloride (98 - 107 mmol/L) 103 CO2 (Enzymatic) (21 - 32 mmol/L) 21 BUN (7 - 18 mg/dL) 26 Creatinine (0.6 - 1.3 mg/dL) 1.5 Est GFR ( Amer) (mL/min) >60 Est GFR (Non-Af Amer) (mL/min) 51.09 Glucose (70 - 110 mg/dL) 255 Plasma Calcium (8.5 - 10.1 mg/dL) 8.5 Total Bilirubin (0.0 - 1.0 mg/dL) 0.4 AST (15 - 37 U/L) 20 ALT (12 - 78 U/L) 29 Alkaline Phosphatase (46 - 116 U/L) 46 Creatine Kinase (24 - 260 U/L) 83 Troponin (0.00 - 1.5 ng/mL) <0.05 Total Protein (6.4 - 8.2 g/dL) 7.3 Albumin (3.3 - 5.0 g/dL) 3.7 Amylase (25 - 115 U/L) 82 Lipase (73 - 393 U/L) 146 Coagulation INR (0.8 - 1.2) 0.9 APTT (24 - 34 SECONDS) 29 D-Dimer, Quantitative (0.27 - 0.52 ug/mLFEU) < 0.27 Hematology WBC (4.5 - 11.5 K/uL) 5.6 RBC (4.50 - 5.90 M/uL) 4.99 Hgb (13.5 - 17.5 gm/dL) 14.3 Hct (41.0 - 53.0 %) 42.2 MCV (80 - 100 fL) 85 MCH (26 - 34 pg) 29 RDW (11.6 - 14.8 %) 14.4 Neut % (Auto) (50 - 75 %) 62.8 Lymph % (Auto) (25 - 40 %) 28.3 [place] % (Auto) (3 - 14 %) 7.4 Eos % (Auto) (0 - 4 %) 1.2 Baso % (Auto) (0 - 2 %) 0.3 Plt Count, EDTA (150 - 400 K/uL) 306 PUBS MCHC (31 - 37 g/dL) 34 Toxicology Plasma/Serum Ethyl Alc (3 - 10 mg/dL) 16 Microbiology Date/Time Procedure - Status Source Growth 05/13 1815 MRSA Screen - RECD NOSE Assessment and Plan Problem List 1. Costochondritis, acute Status Acute Onset Date Unknown Plan -Patient presents with history of chest pain -Findings consistent with costochondritis -Patient's symptoms definitely related to chest wall movement or palpation. These are the symptoms present on admission -Patient with significant improvement with nonsteroidal anti-inflammatory agents -Discharged to home on Celebrex 200 mg by mouth twice a day 5 days -Follow-up with PCP this week Current status: Good, improved Anticipated discharge date: Today Anticipated discharge placement: Home Patient care time: Time spent in chart review, patient interview, physical exam, CPOE, and care documentation: Greater than 30 minutes Visit to patient today: 2 Complexity of care: Moderate For other recommendations regarding discharge diet, activity, followup, and discharge medications please see the patient's discharge instructions. Greater than 30 min. was spent in the patient's discharge preparation including discharge interview and physical examination, progress note, discharge instructions, and discharge summary E&M Codes Discharge: Observation - All/[id number]
[2016-05-14 11:14] VITALS: BP 136/72
[2016-05-14] MEDS ORDERED: CELEBREX200 MG PO (13:12)
--- NOTE | 2016-05-14 13:13 | Provider's Discharge Care Plan ---
Problem, Goal, Plan Problem List 1. Costochondritis, acute Goals: Improve disease control, Prevent disease progress Instructions: Follow up as directed, Take meds as directed
--- NOTE | 2016-05-14 13:13 | Provider's Discharge Care Plan ---
Problem, Goal, Plan Problem List 1. Costochondritis, acute Goals: Improve disease control, Prevent disease progress Instructions: Follow up as directed, Take meds as directed
--- NOTE | 2016-05-14 13:14 | Discharge Summary ---
Discharge Summary Report Admit Date 05/13/16 Discharge Date 05/14/16 Admission Diagnosis 1. Chest pain rule out ACS Discharge Diagnosis 1. Chest pain-costochondritis, acute Brief History Please see admission history and physical examination and ER visit note. Hospital Course The following problems and their management were noted during the patient's hospitalization: 1. Chest pain-costochondritis, acute The patient was admitted with findings of chest pain rule out ACS. Serial troponin/EKG was unremarkable. The patient was noted on the day of discharge to have chest pain associated with chest wall palpation/movement. This clearly represented pain in the area of left costochondral junction. He has easily reproducible chest pain with movement or pressure. The patient stated this was the chest pain he was experiencing at the time of admission. It was felt the patient's symptoms were related to costochondritis and he was treated with nonsteroidals in the form of Toradol. His symptoms improved significantly with this medication. He was discharged on Celebrex 200 mg by mouth twice a day for 5 days. He will follow-up with his PCP this week. General Appearance Alert, Oriented X3, Cooperative, No acute distress Lungs Clear to auscultation, Patient with pain present on chest wall movement/ palpation left costochondral junction. Cardiovascular Regular Rate, Normal S1, Normal S2 Abdomen Normal bowel sounds, Soft, No tenderness Neurological grossly normal Psych/Mental Status Mental status NL, Mood NL Lab/Imaging Laboratory Tests 05/14 05/14 05/14 05/13 0413 0413 0413 1955 Chemistry Plasma Sodium (136 - 145 mmol/L) 141 Plasma Potassium (3.5 - 5.1 mmol/L) 4.4 Plasma Chloride (98 - 107 mmol/L) 105 CO2 (Enzymatic) (21 - 32 mmol/L) 26 BUN (7 - 18 mg/dL) 24 Creatinine (0.6 - 1.3 mg/dL) 1.3 Est GFR ( Amer) (mL/min) >60 Est GFR (Non-Af Amer) (mL/min) >60 Glucose (70 - 110 mg/dL) 139 Hemoglobin A1c % (4.5 - 6.2 %) 8.2 Plasma Calcium (8.5 - 10.1 mg/dL) 8.6 Troponin (0.00 - 1.5 ng/mL) <0.05 <0.05 Triglycerides (30 - 200 mg/dL) 245 Cholesterol (140 - 200 mg/dL) 187 LDL Cholesterol, Calc (mg/dL) 100 HDL Cholesterol (32 - 96 mg/dL) 38 LDL/HDL Ratio 2.6 Cholesterol/HDL Ratio 4.9 Coronary Risk Interp (0.4 - 1.0) 0.8 Hematology WBC (4.5 - 11.5 K/uL) 5.6 RBC (4.50 - 5.90 M/uL) 4.85 Hgb (13.5 - 17.5 gm/dL) 13.7 Hct (41.0 - 53.0 %) 41.2 MCV (80 - 100 fL) 85 MCH (26 - 34 pg) 28 RDW (11.6 - 14.8 %) 14.8 Neut % (Auto) (50 - 75 %) 51.4 Lymph % (Auto) (25 - 40 %) 33.2 [place] % (Auto) (3 - 14 %) 12.2 Eos % (Auto) (0 - 4 %) 2.7 Baso % (Auto) (0 - 2 %) 0.5 Plt Count, EDTA (150 - 400 K/uL) 269 PUBS MCHC (31 - 37 g/dL) 33 05/13 05/13 1850 1400 Chemistry B-Natriuretic Peptide (5 - 100 pg/ml) 9.5 Toxicology Urine Opiates Screen (NEGATIVE) POSITIVE Urine Methadone Screen (NEGATIVE) NEGATIVE Ur Barbiturates Screen (NEGATIVE) NEGATIVE U Amphetamin/Meth Scrn (NEGATIVE) POSITIVE MDMA (Ecstasy) Screen (NEGATIVE) NEGATIVE U Benzodiazepines Scrn (NEGATIVE) NEGATIVE Urine Cocaine Screen (NEGATIVE) NEGATIVE U Cannabinoids Screen (NEGATIVE) NEGATIVE Urines Urine Color YELLOW Urine Appearance CLEAR Urine pH (5.0 - 8.0) 5.5 Ur Specific [place] (1.010 - 1.030) 1.025 Urine Protein (NEGATIVE) NEGATIVE Urine Ketones (NEGATIVE) TRACE Urine Blood (NEGATIVE) NEGATIVE Urine Nitrite (NEGATIVE) NEGATIVE Urine Bilirubin (NEGATIVE) NEGATIVE Urine Urobilinogen (0.2 - 1.0 EU/dL) 0.2 Ur Leukocyte Esterase (NEGATIVE) NEGATIVE Urine RBC (0 - 1 rbc/hpf) 0-1 Urine WBC (0 - 1 wbc/hpf) 1-3 Ur Epithelial Cells (0 - 5 EPI/hpf) 1-3 Urine Bacteria (NONE SEEN) TRACE (<1+) Urine Glucose (NEGATIVE) 1+ Urine Comment CULT NOT INDICATED 05/13 1400 Chemistry Plasma Sodium (136 - 145 mmol/L) 138 Plasma Potassium (3.5 - 5.1 mmol/L) 4.1 Plasma Chloride (98 - 107 mmol/L) 103 CO2 (Enzymatic) (21 - 32 mmol/L) 21 BUN (7 - 18 mg/dL) 26 Creatinine (0.6 - 1.3 mg/dL) 1.5 Est GFR ( Amer) (mL/min) >60 Est GFR (Non-Af Amer) (mL/min) 51.09 Glucose (70 - 110 mg/dL) 255 Plasma Calcium (8.5 - 10.1 mg/dL) 8.5 Total Bilirubin (0.0 - 1.0 mg/dL) 0.4 AST (15 - 37 U/L) 20 ALT (12 - 78 U/L) 29 Alkaline Phosphatase (46 - 116 U/L) 46 Creatine Kinase (24 - 260 U/L) 83 Troponin (0.00 - 1.5 ng/mL) <0.05 Total Protein (6.4 - 8.2 g/dL) 7.3 Albumin (3.3 - 5.0 g/dL) 3.7 Amylase (25 - 115 U/L) 82 Lipase (73 - 393 U/L) 146 Coagulation INR (0.8 - 1.2) 0.9 APTT (24 - 34 SECONDS) 29 D-Dimer, Quantitative (0.27 - 0.52 ug/mLFEU) < 0.27 Hematology WBC (4.5 - 11.5 K/uL) 5.6 RBC (4.50 - 5.90 M/uL) 4.99 Hgb (13.5 - 17.5 gm/dL) 14.3 Hct (41.0 - 53.0 %) 42.2 MCV (80 - 100 fL) 85 MCH (26 - 34 pg) 29 RDW (11.6 - 14.8 %) 14.4 Neut % (Auto) (50 - 75 %) 62.8 Lymph % (Auto) (25 - 40 %) 28.3 [place] % (Auto) (3 - 14 %) 7.4 Eos % (Auto) (0 - 4 %) 1.2 Baso % (Auto) (0 - 2 %) 0.3 Plt Count, EDTA (150 - 400 K/uL) 306 PUBS MCHC (31 - 37 g/dL) 34 Toxicology Plasma/Serum Ethyl Alc (3 - 10 mg/dL) 16 Microbiology Date/Time Procedure - Status Source Growth 05/13 181 MRSA Screen - RECD NOSE Discharge Instructions/Meds For other recommendations regarding discharge diet, activity, followup, and discharge medications please see the patient's discharge instructions. Discharge condition: Good, improved Greater than 30 min. was spent in the patient's discharge preparation including discharge interview and physical examination, progress note, discharge instructions, and discharge summary The patient was interviewed and examined on the day of discharge. E&M Codes Discharge: Observation - All/[id number]
== END 2016-05-14 13:50 | disposition home or self-care (01) ==
LOC: ED SRH 13:44 → TRANS SRH 15:57 → CC SRH 15:57
PROVIDERS: ADMIT Internal Medicine
DX: M94.0 Chondrocostal junction syndrome [Tietze] (principal); I25.2 Old myocardial infarction; I25.10 Atherosclerotic heart disease of native coronary artery without angina pectoris; Z95.5 Presence of coronary angioplasty implant and graft; E78.5 Hyperlipidemia, unspecified; E11.9 Type 2 diabetes mellitus without complications; Z79.84 Long term (current) use of oral hypoglycemic drugs
CPT/HCPCS: 29247; 90004; 90047; 90074; 90098; 90100; 90616; 91286; 91320; 91556; 92010; 92132; 92235; 92530; 92610; 92690; 92760; 92761; 92762; 92763; 92764; 92765; 92766; 92767; 94001; 94060; 95059